=== PATIENT | male | born 1950 | race Caucasian/White ===

== ENCOUNTER 2025-03-14 06:03 | Day surgery (SDC) | payer MEDICARE, SELFPAY ==
--- NOTE | 2025-03-13 16:20 | PDOC.DSDIS_ITS ---
Date of service: 03/14/25 Discharge Plan Disposition Patient Disposition: Home Condition: Good Discharge Details Reason For Visit: EGD and colonoscopy Attending Provider: Regis Marquez Primary Care Provider: Kaitlin Marroquin Home Meds and New Rx's Prescriptions: Continued colchicine 0.6 mg capsule 0.6 mg PO DAILY omeprazole 40 mg capsule,delayed release(DR/EC) 40 mg PO DAILY Discontinued bisacodyl [Dulcolax (bisacodyl)] 5 mg tablet,delayed release (DR/EC) 5 mg PO ONCE Qty: 4 0RF Rx Instructions: Take per colonoscopy instructions provided by ordering providers office polyethylene glycol 3350 17 gram/dose powder 17 g PO ONCE Qty: 238 0RF Rx Instructions: Take per colonoscopy instructions provided by ordering providers office No Action latanoprost 0.005 % drops 1 drp ophthalmic (eye) DAILY Patient Comments: PLACE ONE DROP IN EACH EYE EVERY EVENING Discharge Instructions Instructions: Colon polyps, Diverticulosis, Stomach polyps Additional Instructions: Primitivo, I enjoyed meeting you, and hope you feel well after the procedure. Things went very smoothly. With regards to your upper endoscopy, I did find, and remove the gastric polyp today. I will send this off to the pathologist for them to review. Gastric polyps are extremely common among patients who take proton pump inhibitors such as your omeprazole. Generally, there are nothing to worry about. There is a little bit of irritation in the stomach lining as well. I did some biopsies of this as we discussed beforehand. Otherwise, there is nothing obvious to the naked eye that appears particularly worrisome. With regards to the colonoscopy, I found and removed 1 polyp during the course o f this procedure as well. Incidentally, you have some diverticulosis. These are weak spots in the muscular layer of the colon wall that cause the inside lining or mucosa to pocket or pooch outwards a bit. These pockets are called diverticula. The condition of having them is called diverticulosis, and if they become infected or inflamed we refer to as diverticulitis. I will attach some basic information here about polyps as well as diverticulosis. If you need anything, or have any questions at all, please do not hesitate to call us. Otherwise, we will be in touch once we have the results of all of the polyp analysis. 1. If tolerated, consume a soft, low fiber diet for 1-2 days. 2. Do not drive, drink alcohol, operate machinery, make critical decisions, or do activities that require coordination or balance for 24 hours. 3. Because air was put into your colon during the procedure, expelling air from your rectum (passing gas or farting) is normal. 4. You may not have a bowel movement for 1-3 days because of the colonoscopy prep. This is normal. 5. You may experience a sore throat for 24 to 48 hours. You may use throat lozenges or gargle with warm salt water to relieve the discomfort. 6. Because air was put into your stomach during the procedure, you may experience some belching. 7. Go directly to the emergency room if you notice any of the following: Develop chills (warm to touch), or if you have a thermometer and your temperature is above 101 Difficulty breathing or difficultly swallowing Persistent vomiting Severe abdominal pain, other than gas cramps Severe chest pain Black, tarry stools Any bleeding ? exceeding one tablespoon 8. Call your physician if the site where your intravenous was started becomes red, swollen, painful, and warm to touch. 9. Your physician has reviewed your pre-procedure medications. Please continue to take those medications as previously ordered. You will be given specific information/education regarding any changes to your medications before leaving. Stand Alone Forms: Anesthesia Discharge Inst., Doug Thompson (DSU) Activity:: Activity as Tolerated Diet:: As Tolerated Discharge Orders Discharge Orders: Discharge Order (Routine); Ordered 03/13/25 Ordered By: Regis Marquez DS: Diagnosis Discharge Diagnosis (1) Encounter for screening colonoscopy: Status: Acute Asessment and Plan: Follow-up on biopsy results
--- NOTE | 2025-03-13 16:23 | W.PM.ENDDOP ---
Date of service: 03/14/25 Time of Service: 08:09 Endoscopy Report DATE OF PROCEDURE: 03/14/25 PRE-OP DIAGNOSIS: GERD and screening colonoscopy POST-OP DIAGNOSIS: other (Gastritis, gastric polyp; colon diverticulosis, 0.25 cm colon polyp at 70 cm) PROCEDURE: EGD with polypectomy and biopsies and colonoscopy with polypectomy SURGEON: Regis Marquez ANESTHESIA TYPE: General:No Airway ESTIMATED BLOOD LOSS: 5 PATHOLOGY: other (0.75 cm pedunculated gastric polyp, nondirected biopsies of gastric body, nondirected biopsies of GE junction; 0.25 cm colon polyp at 70 cm) COMPLICATIONS: None DISPOSITION: same day INDICATIONS: Steve is a 74-year-old male with poorly controlled gastroesophageal reflux disease and a history of adenomatous polyps who needs a screening EGD and colonoscopy PREP: Miralax/Dulcolax PROCEDURE START TIME: 07:30 PROCEDURE END TIME: 07:53 COLONOSCOPY RETRACTION TIME: 10 FINDINGS: Gastritis, gastric polyp; colon diverticulosis, 0.25 cm colon polyp at 70 cm PROCEDURE DESCRIPTION: After the initiation of anesthesia, and with the assistance of a bite block, I advanced a standard gastroscope through the mouth past the hypopharynx and into the esophagus.? Under the direct vision of the scope, I advanced down the esophagus towards the stomach.? The upper, mid, and lower esophagus were all normal in course and caliber. Mucosa was healthy appearing. The Z-line was mostly regular and the GE junction is encountered around 38 cm past the incisors. Narrowband imaging was used to assist with the analysis here. This did not appear consistent with Corado's esophagus. I am able to traverse the GE junction with ease. I performed retroflexion. This all looked normal. The stomach was then insufflated into the rugae were obliterated. There was a 0.75 cm mostly pedunculated gastric polyp that was removed with cold forceps. There was minimal bleeding. There is a little bit of thickening of the gastric body that appeared consistent with gastritis, and some nondirected biopsies of the gastric body were performed to rule out Helicobacter pylori as a source of the gastritis. There was no discrete ulceration. Biopsy sites were hemostatic. I am able to advance down across the pylorus into the duodenum with ease. The duodenal is all normal and healthy. I then brought the camera back into the stomach and emptied it completely. We then moved Primitivo into the left lateral decubitus position. I began by performing an external anorectal exam.? Perineum and skin were normal, as was the anal verge.? There was no evidence of external hemorrhoids.? Next, I performed a digital rectal exam.? I did not appreciate any abnormal findings.? Next, I advanced a colonoscope into the rectal vault.? I performed retroflexion.? This appeared normal.? Using insufflation, I then advanced the colonoscope beyond the rectal folds and into the sigmoid colon before advancing towards the cecum.? There is diverticulosis involving all segments of the colon, but it is most heavily concentrated in the sigmoid section. The scope was noted to be in the cecum by identification of the ileocecal valve and appendiceal orifice.? I then began withdrawing the colonoscope using repeated irrigation as necessary for full evaluation of the colonic mucosa. ?Around 70 cm from the anal verge I identified a 0.25 cm polyp. ?It appeared flat in character. ?I was able to remove this with a cold forcep polypectomy. ?I examined the site, and there was minimal bleeding. ?Once this was completed, I continued to withdraw the scope and examine the remainder of the colonic mucosa. Once the scope was withdrawn to the level of the rectum, great care was taken to examine portions of the rectal folds.? Finally, the scope was withdrawn and the patient was brought to the same-day surgery recovery unit as the anesthetic wore off. ?The findings and instructions were shared with the patient prior to discharge.
[2025-03-14 06:15] VITALS: BP 143/91; PULSE 69; RESP 18; TEMP 36.5; O2SAT 97
[2025-03-14] MEDS: Lactated Ringers 1,000 ML 80 ML IV (06:44)
--- NOTE | 2025-03-14 07:03 | W.ANESPRE ---
General Info Date of Service Date Performed: 03/14/25 Height: 5 ft 7 in Weight: 88.5 kg Body Mass Index (BMI): 30.5 Surgical Procedure: Operation Date: 03/14/25 07:35 Proposed Procedure Side Surgeon p Colonoscopy/Gastroscopy Regis Marquez MD Meds Allergies and Home Medications Allergies Allergy/AdvReac Type Severity Reaction Status Date / Time No Known Allergies Allergy Verified 03/14/25 06:32 Home Medication ?Medication ?Instructions ?Recorded colchicine 0.6 mg capsule 0.6 mg PO DAILY 12/03/24 omeprazole 40 mg capsule,delayed 40 mg PO DAILY 12/03/24 release latanoprost 0.005 % eye drops 1 drp ophthalmic (eye) DAILY 03/14/25 Current Visit Medications: Current Medications Generic Name Dose Route Start Last Admin Trade Name Freq PRN Reason Stop Dose Admin Ringer's Solution 1,000 mls @ 80 mls/hr 03/14/25 06:00 03/14/25 06:44 IV 03/14/25 23:59 80 mls/hr INFUSION JEANIE Administration IV Miscellaneous Supplies 1 each 03/14/25 06:00 Iv Access IV 03/14/25 23:59 DIRECTED JEANEI Sodium Chloride 0 ml 03/14/25 06:00 Normal Saline Flush 10 Ml Syr IV 03/14/25 23:59 PRN PRN Sodium Chloride 0 ml 03/14/25 06:00 Normal Saline 10 Ml Vial IJ 03/14/25 23:59 DIRECTED PRN Sterile Water 0 ml 03/14/25 06:00 Water,Injection,Sterile 10 Ml Vial IJ 03/14/25 23:59 DIRECTED PRN PFSH Active Problems Active Problems: Problem Status Onset Code Encounter for screening colonoscopy Acute Z12.11 Insomnia Acute G47.00 GERD (gastroesophageal reflux disease) Chronic K21.9 Medical History Medical History Sessile serrated polyp of colon (~02/07/22) Gout Allergic rhinitis Carpal tunnel syndrome Hyperlipidemia Surgical History Surgical History 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 Status post right knee replacement 01/06 History of colonoscopy with polypectomy (~02/07/22) [facility] Tobacco Smoking/Tobacco Use Status: Never Alcohol Alcohol Intake: current Alcohol intake frequency: a few times a week Alcohol type: beer Substance Use Substance use: Never Substance use type: does not use Vital Signs and Lab Results Vital Signs Most Recent Vital Signs in EMR: Most Recent Vital Signs Temp Pulse Resp BP Pulse Ox 36.5 C 69 18 143/91 H 97 03/14/25 06:15 03/14/25 06:15 03/14/25 06:15 03/14/25 06:15 03/14/25 06:15 Anesthesia Assessment and Plan Anesthesia History Personal History: No History of Anesthesia Complications Family History: No Family History of Anesthesia Complications Exercise Tolerance Exercise Tolerance: Metabolic Equivalents>4 Cardiac & Pulmonary Exam Cardiac Exam: Normal S1/S2 Heart Sounds Pulmonary Exam: Clear Bilateral Breath Sounds Implantable Cardiac Device Does patient have a Pacemaker or an ICD?: No Airway Exam Known Difficult Airway: No Mallampati Class: 2 Mouth Opening: Normal (> 3cm) Thyromental Distance: Greater than 3 cm Neck Range of Motion: Full ROM Neck Circumference: Normal Teeth Condition: Normal Dentition ASA Classification ASA Score: ASA 2 Emergency Case?: No NPO Status NPO Status: NPO Clears >2 hours, Solids >8 hours Anesthesia Plan Resuscitation Status: Full Code Anesthesia Technique: General Anesthesia Airway Planned: Natural Airway Monitors Used: Standard Monitors
[2025-03-14 07:06] VITALS: BMI 30.5
--- NOTE | 2025-03-14 07:32 | BOWEL_PTH ---
PATIENT: Primitivo Fagan SR LOC: [facility] U#:[id number] AGE/SX: 74/M ROOM: RE03/14/[address]: Regis Marquez MD : [id number] BED: DIS: 03/14/2025 SPEC #: [id number] RECD: 03/14/25 12:26 STATUS: [facility] #: [id number] MYRON: 03/14/25 07:[address]: Regis Marquez DEPT: Surgical Specimen RECD BY: Kacy Spencer ENTERED: 03/14/25 12:28 SP TYPE: Bowel OTHR DR: Kaitlin Marroquin Tissues: 1 - STOMACH BIOPSY 2 - STOMACH BIOPSY 3 - ESOPHAGUS BIOPSY 4 - BIOPSY BOWEL Procedures: GROSS AND MICRO LEVEL 4 Comments: [id number]
[2025-03-14 08:04] VITALS: BP 130/98; PULSE 65; RESP 17; TEMP 36.2; O2SAT 95
--- NOTE | 2025-03-14 08:20 | W.ANESPOSTOP ---
Postoperative Evaluation Date, Time and Location Date Performed: 03/14/25 Time Performed: 08:04 Patient Location: Day Surgery Unit Vital Signs Most Recent Imported Vital Signs: Most Recent Vital Signs Temp Pulse Resp BP Pulse Ox 36.2 C L 65 17 130/98 H 95 03/14/25 08:04 03/14/25 08:04 03/14/25 08:04 03/14/25 08:04 03/14/25 08:04 Pain Score Most Recent Pain Score: Most Recent Pain Score Pain Level 0 03/14/25 08:04 Assessment Mental Status: Arousable with meaningful communication Airway and Respiratory Function: Patent airway with normal (patient baseline) respiratory exam Cardiovascular Function: Hemodynamically Stable Hydration Status: Adequately Hydrated Nausea & Vomiting: No Nausea or Vomiting Pain: Pt. Denies Any Pain Peripheral Nerve Block: Patient did not receive a nerve block
[2025-03-14 08:33] VITALS: BP 121/83; PULSE 66; RESP 17; TEMP 36.3; O2SAT 95
== END 2025-03-14 08:36 | disposition home or self-care (01) ==
LOC: SUR 06:04
PROVIDERS: PCP Internal Medicine; Visit Provider Surgery
PROC: (CPT 45380; principal; 2025-03-14 07:30)
DX: Z12.11 Encounter for screening for malignant neoplasm of colon (principal); K21.9 Gastro-esophageal reflux disease without esophagitis; K57.30 Diverticulosis of large intestine without perforation or abscess without bleeding; K63.5 Polyp of colon; K22.89 Other specified disease of esophagus; K31.89 Other diseases of stomach and duodenum
CPT/HCPCS: 45380; 43239; 88305; J2003; J2704